=== PATIENT | female | born 1940 | race Caucasian/White ===

== ENCOUNTER 2017-05-13 11:31 | Inpatient (IN) | payer OTHER ==
[~2017-05-13] VITALS: Ht 170.2 cm; Wt 94.4 kg
--- NOTE | ~2017-05-13 | EKG ---
[place] [address] [facility] [place] [address] ELECTROCARDIOGRAM REPORT Name: LORNA NUÑEZ Room #: 204-P ADM IN M.R.#: [id number] Admission: 05/13/17 Attend Phys: Deyvi Geronimo MD Discharge: Date of : 40 Report #: [id number] THIS REPORT FOR: //name// [facility] ED Test Date: 2017-05-13 Test Time: 12:01:19 Pat Name: LORNA NUÑEZ Department: Room: 204 Gender: F Napper Tender: Tunde LANDEROS : 1940 Requested By: Susi Barron Order Number: [id number] MD: Toribio Molina Measurements Intervals [place] Rate: 56 P: 37 DC: 151 QRS: -22 QRSD: 104 T: 38 QT: 490 QTc: 473 Interpretive Statements Sinus rhythm Borderline left axis deviation Baseline wander in lead(s) V3 No previous ECG available for comparison Electronically Signed On 05-13-2017 21:45:44 [employer] WORK[employer] by Toribio Molina [email or web address] <ELECTRONICALLY SIGNED> By: Toribio Molina MD 05/13/17 2145 1201 120 Toribio Molina MD /GIL
[2017-05-13 11:35] VITALS: BP 163/96
[2017-05-13 12:06] LABS: ABSOLUTE NEUTROPHILS 5.8 thou/uL (1.4-8.2); BASOPHILS 1.3 % (0.0-2.0); EOSINOPHILS 3.5 % (0.0-3.0); HEMATOCRIT 32.7 % (37.0-47.0); HEMOGLOBIN 11.1 gm/dL (12.0-15.0); LYMPHOCYTES 16.2 % (24.0-44.0); MCH 33.6 pg (26.0-34.0); MCHC 33.8 g/dL (28.0-37.0); MCV 99.3 fL (80.0-100.0); MONOCYTES 7.9 % (1.0-8.0); PLATELET COUNT 517 thou/uL (150-400); POLYS 71.1 % (36.0-66.0); RDW 13.7 % (10.5-14.5); WBC 8.1 thou/uL (4.0-11.0)
[2017-05-13 12:08] LABS: MANUAL DIFF NO
[2017-05-13 12:16] LABS: ANION GAP 8 mmol/L (7-16); BUN 7 mg/dL (7-18); CALCIUM 8.9 mg/dL (8.5-10.1); CHLORIDE 101 mmol/L (98-107); CO2 29 mmol/L (21-32); CREATININE 1.2 mg/dL (0.6-1.0); GLUCOSE 106 mg/dL (74-106); POTASSIUM 3.4 mmol/L (3.5-5.1); SODIUM 138 mmol/L (136-145)
[2017-05-13 12:19] LABS: TROPONIN-I < 0.04 ng/mL (<0.06)
[2017-05-13] MEDS ORDERED: ASPIR 8181 M1 PO (14:01)
[2017-05-13] MEDS ORDERED: PRINIVIL20 MG PO (14:02)
[2017-05-13] MEDS ORDERED: METOPROLOL TART75 MG PO (14:02)
[2017-05-13] MEDS ORDERED: SYNTHROID175 MCG PO (14:02)
[2017-05-13] MEDS ORDERED: SENOKOT-S1 TA2 PO (14:03)
[2017-05-13] MEDS ORDERED: OXYCODONE HCL 55 MG PO (14:03)
[2017-05-13 15:14] VITALS: BP 153/85
[2017-05-13 19:27] VITALS: BP 138/77
[2017-05-13 23:41] VITALS: BP 119/66
[2017-05-14 02:41] LABS: HEMATOCRIT 30.1 % (37.0-47.0); HEMOGLOBIN 10.1 gm/dL (12.0-15.0); MCH 33.2 pg (26.0-34.0); MCHC 33.5 g/dL (28.0-37.0); RBC 3.04 mil/uL (4.20-5.00); RDW 13.8 % (10.5-14.5); WBC 7.6 thou/uL (4.0-11.0)
[2017-05-14 02:51] LABS: CALCIUM 8.3 mg/dL (8.5-10.1); CREATININE 1.1 mg/dL (0.6-1.0); POTASSIUM 3.3 mmol/L (3.5-5.1)
[2017-05-14 04:14] VITALS: BP 143/76
[2017-05-14 07:36] VITALS: BP 154/68
[2017-05-14] MEDS ORDERED: AMLODIPINE BESY10 MG PO (09:13)
[2017-05-14 09:58] VITALS: BP 154/68
[2017-05-14 10:38] VITALS: BP 154/68
== END 2017-05-14 10:35 | disposition home or self-care (01) | DRG 305 ==
LOC: ER 11:31 → EROBS 13:55 → 2N 13:55 → ENTRNSPT 05-14 10:25 → EDTRNSPTSTS 05-14 10:28 → 2N 05-14 10:35
PROVIDERS: Emergency Medicine; Hospitalist
DX: I16.0 Hypertensive urgency (principal); E03.9 Hypothyroidism, unspecified; F17.210 Nicotine dependence, cigarettes, uncomplicated; F32.9 Major depressive disorder, single episode, unspecified; Z79.82 Long term (current) use of aspirin; Z79.899 Other long term (current) drug therapy
CPT/HCPCS: 10081

== ENCOUNTER 2018-08-21 12:14 | Emergency (ER) | payer OTHER, BC ==
[~2018-08-21] VITALS: Ht 170.2 cm; Wt 90.7 kg
[~2018-08-21 12:14] MED LIST: AMLODIPINE BESY10 MG PO; ASPIR 8181 M1 PO; METOPROLOL TART75 MG PO; OXYCODONE HCL 55 MG PO; PRINIVIL20 MG PO; SENOKOT-S1 TA2 PO; SYNTHROID175 MCG PO
[2018-08-21 13:20] VITALS: BP 132/64
== END 2018-08-21 13:20 | disposition home or self-care (01) ==
LOC: ER 12:14
DX: S92.511A Displaced fracture of proximal phalanx of right lesser toe(s), initial encounter for closed fracture (principal); E03.9 Hypothyroidism, unspecified; F17.210 Nicotine dependence, cigarettes, uncomplicated; W20.8XXA Other cause of strike by thrown, projected or falling object, initial encounter; Y92.89 Other specified places as the place of occurrence of the external cause; Y93.89 Activity, other specified; Y99.8 Other external cause status